=== PATIENT | male | born 1995 | race Caucasian/White ===

== ENCOUNTER 2022-01-09 09:54 | Outpatient (CLI) | payer OTHER ==
--- NOTE | 2022-01-09 11:06 | SLEEP CARE CONSULTATION ---
Information from patient questionnaire entered by Alissa Rocha MA. I have reviewed and concur with the information entered by Alissa Rocha MA. This document represents the service I personally performed and the decisions made by , Katie Cox ARNP. History of Present Illness Service Date and Time: 01/09/2022 0954 Reason for Visit: New patient Chief Complaint: reports: Snoring (light, rare), Excessive daytime sleepiness, Observed pauses in breathing, Fatigue Date of Onset: 2016 Usual bedtime: 9 PM Time it takes to fall asleep: 20 MINUTES - 2 HOURS Snores at night: No (very occasional) Observed to quit breathing while asleep: Yes Sleeps alone due to snoring: No Number of times waking at night: 1 Reasons for waking at night: reports: Gasping for air (random), Bathroom, Other (noise). denies: Snoring Toss, Turn, or Twitch while sleeping: Yes Recalls having dreams: Yes Usually gets out of bed at: 0600; 8-11 on weekends Feels refreshed in the morning: Yes (mostly) Morning headache: No Sleepy or fatigued during the day: Yes Ever fallen asleep while driving: No Takes day naps: No Dreams during day naps: Yes Prior sleep studies: No Additional HPI information: I had the pleasure of seeing MAICOL MATA today regarding the possibility of him having a sleep disorder. His current complaints are excessive daytime sleepiness, observed pauses in breathing and fatigue. Patient states that he is tired throughout the day. His girlfriend is "tired "of making sure that he continues to breathe. 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 He is here to find out if he has sleep apnea. He states he is able to get to sleep quickly some days and other nights it might take a couple of hours. He does not wake up often during the night but he has had incidences of waking up gasping for air. He states when he tries to nap, his heart rate will increase/race and then he feels anxious. He avoids naps for this reason. - Parasomnia Symptoms Ever been unable to move upon waking from sleep: Yes (last time happened in 2019; happened 9 times all together) Walks in sleep: No Talks in sleep: No Ever acted out dreams in sleep: No Ever felt weak in the knees when startled or emotional: Yes (has not fallen to the ground) Bothered by creepy, crawly, restless sensations in legs: Yes (rare) Problems with memory or concentration: Yes (both) Subjective Initial [place] Sleepiness Scale score: 9 (01/09/2022) Past Medical History Past Medical History: reports: Other (Being seen for ADHD, high blood pressure and narrow nasal passages (mouth breather)) Social History The patient's occupation is a AM. Patient is and lives in [place]. Have you smoked in the past 12 months: No Alcohol use: Yes Alcohol amount and frequency: 4-6 - 2 X WEEKLY Caffeine use: Yes Caffeine amount and frequency: 1 X DAILY Family History Family history of sleep disordered breathing: No Allergies and Home Medications Known drug allergies: No (NKA) Drug allergies reviewed: Yes (NKDA) Home medication list reviewed: Yes Allergy and home medication list: Allergies No Known Drug Allergies Allergy (Verified 02/04/19 09:53) VERIFIED BY ILIA KEENAN 01/09/2022 1000 Medications: Flonase, daily Review of Systems Weight gain over past 5 years: 40 Cardiovascular: reports: high blood pressure, chest pain Neurological: denies: headaches, head trauma Psychiatric: reports: Attention Deficit Hyperactivity, other (ADHD) Ear/Nose/Throat: reports: nasal congestion, sinus problems Endocrine: reports: too hot or cold, increased appetite Musculoskeletal: reports: back pain Physical Exam Vital signs obtained and entered by: ILIA KEENAN Blood Pressure: 116/78 (R18, P67, RIGHT) Heart Rate: 67 O2 Saturation: 98 (CLOTHE MASK) Height: 6 ft 1 in Weight: 240 lb (UNIFORM AND BOOTS PER PT INFO) Body Mass Index: 31.6 BMI Classification: Obese Neck circumference: 14.5 (INCHES) Mouth and throat: narrow oropharynx Soft palate: normal Hard palate: normal Uvula: normal Uvula visualization: 25% Mallampati Class III Tongue: normal in size Tonsils: 1+ Neck: normal w/o lymphadenopathy or thyromegaly Heart: regular rate and rhythm Lungs: clear bilaterally Impression and Plan 1. Suspected Obstructive Sleep Apnea-Hypopnea Syndrome, as suggested by a history of irregular snoring, observed cessation of breath while asleep, gasping or choking in sleep, frequent awakening during the night, cognitive impairment, and excessive daytime sleepiness. Narrow oropharynx and obesity are common predisposing factors for obstructive sleep apnea-hypopnea syndrome. I recommend proceeding to polysomnography to confirm the diagnosis and to assess severity. If the patient has significant sleep disordered breathing, a manual CPAP titration study will also be performed to find the optimal treatment pressure. I informed the patient of what the sleep studies involve and after some discussion, obtained agreement to proceed. The pathophysiology of obstructive sleep apnea-hypopnea syndrome was discussed with the patient and health risks of cardiovascular and cerebrovascular disease if not treated. Risks of drowsy driving discussed in detail and patient advised to avoid long distance driving and to extractor puller at the first sign of drowsiness. Patient agreed to plan. * Schedule polysomnography * Avoid long distance driving or driving when feeling sleepy. * Avoid alcohol, sedative and muscle relaxant around bedtime. * Attempt to lose weight. * Review instructions provided by trained office staff on how to prepare for the sleep study. * Return for follow-up after sleep study completed. Counseling Topics: Weight loss health impact Visit Type: In Office Time Spent with Patient (minutes): 32 Provider Statement: I spent 100% of the Face to Face Visit with the patient with greater than 50% spent counseling the patient and coordination of care.
[2022-01-09 11:07] VITALS: BP 116/78
== END 2022-01-09 09:55 | disposition home or self-care (01) ==
LOC: SC 09:54
PROVIDERS: ATTEND Nurse Practitioner Family
DX: R06.83 Snoring (principal); G47.8 Other sleep disorders; R06.81 Apnea, not elsewhere classified; E66.9 Obesity, unspecified; Z68.31 Body mass index [BMI] 31.0-31.9, adult
CPT/HCPCS: 99203; 99212

== ENCOUNTER 2022-02-26 09:23 | Outpatient (CLI) | payer OTHER | END 2022-02-26 09:24 | disposition home or self-care (01) | LOC: SC 09:23 | PROVIDERS: ATTEND Nurse Practitioner Family | DX: Z53.9 Procedure and treatment not carried out, unspecified reason (principal) ==

== ENCOUNTER 2022-02-27 11:26 | Outpatient (CLI) | payer OTHER | END 2022-02-27 11:27 | disposition home or self-care (01) | LOC: SC 11:26 | PROVIDERS: ATTEND Nurse Practitioner Family | DX: R06.83 Snoring (principal) | CPT/HCPCS: 95806 ==

== ENCOUNTER 2022-03-20 12:46 | Outpatient (CLI) | payer OTHER ==
--- NOTE | 2022-03-20 13:25 | SLEEP CARE CONSULTATION ---
Information from patient questionnaire entered by Janeth Santos. I have reviewed and concur with the information entered by Janeth Santos. This document represents the service I personally performed and the decisions made by , Katie Cox ARNP. History of Present Illness Service Date and Time: 03/20/2022 1246 Initial [place] Sleepiness Scale score: 9 (01/09/2022) Current [place] Sleepiness Scale score: 11 (03/20/2022) Additional HPI information: MAICOL MATA returns for follow up and results of the recently performed home sleep study. The patient was informed of the following findings: No significant sleep disordered breathing with an average AHI of 1.7 and sanjeev oxygen saturation of 83%. No supine sleep. I explained the pathophysiology behind obstructive sleep apnea. Patient does not have sleep apnea and was advised how weight gain could increase the risk of developing sleep apnea in the future. Patient was cautioned about risks of drowsy driving until sleepiness symptoms resolve. Sleep Study - Results Type of Sleep Study: Home sleep study (COMPLETED 02/27/2022) Prior sleep studies: No Polysomnography/Home Sleep Study results: Physician Impression: The quality of the study is fair due to partial loss of pulse oximetry signal. The length of the study is adequate (> 240 minutes). Please also see the tabulated and graphic data. 1. No significant sleep disordered breathing, with an AHI of 1.7/hr and sanjeev SaO2 of 83%. During the study, the patient had 2 apneas (2 obstructive, 0 central, 0 mixed) and 11 hypopneas. The longest episode lasted 67.5 seconds. The patient did not sleep supine during this study (supine AHI was 0.0 and non-supine, 1.66). 2. Hypoxemia (ICD-10 R09.02), minimal, with the lowest oxygen saturation of 83 % and 2.0 minutes with SaO2 under 90%. Baseline oxygen saturation was normal (Average oxygen saturation was 95%). Allergies and Home Medications Drug allergies reviewed: Yes (NKDA) Home medication list reviewed: Yes (chlorotiazide) Review of Systems Review of systems same as previous: No (hypertension) Physical Exam Vital signs obtained and entered by: JANETH Mckinley MA Blood Pressure: 154/100 (LEFT ARM) Cuff size: regular Heart Rate: 68 O2 Saturation: 97 Height: 6 ft 1 in Weight: 249 lb 3.2 oz Body Mass Index: 32.8 BMI Classification: Obese Impression and Plan 1. Suspected Obstructive Sleep Apnea-Hypopnea Syndrome, as suggested by a history of loud and irregular snoring, observed cessation of breath while asleep, gasping or choking in sleep, frequent awakening during the night, unrefreshed sleep, cognitive impairment, and excessive daytime sleepiness. Patient had a HST that was sub-optimal due to pulse oximetry loss and no supine sleep. I recommend proceeding to polysomnography to confirm the diagnosis and to assess severity. I obtained agreement to proceed. The pathophysiology of obstructive sleep apnea-hypopnea syndrome was discussed with the patient and health risks of cardiovascular and cerebrovascular disease if not treated. Risks of drowsy driving discussed in detail and patient advised to avoid long distance driving and to car repairer pullman at the first sign of drowsiness. Patient agreed to plan. * Schedule polysomnography * Avoid long distance driving or driving when feeling sleepy. * Avoid alcohol, sedative and muscle relaxant around bedtime. * Attempt to lose weight. * Review instructions provided by trained office staff on how to prepare for the sleep study. * Return for follow-up after sleep study completed. Counseling Topics: Weight loss health impact Visit Type: In Office Time Spent with Patient (minutes): 14 Provider Statement: I spent 100% of the Face to Face Visit with the patient with greater than 50% spent counseling the patient and coordination of care.
[2022-03-20 13:26] VITALS: BP 154/100
== END 2022-03-20 12:47 | disposition home or self-care (01) ==
LOC: SC 12:46
PROVIDERS: ATTEND Nurse Practitioner Family
DX: R06.83 Snoring (principal); G47.8 Other sleep disorders; R06.81 Apnea, not elsewhere classified; G47.10 Hypersomnia, unspecified; I10 Essential (primary) hypertension; E66.9 Obesity, unspecified; Z68.32 Body mass index [BMI] 32.0-32.9, adult
CPT/HCPCS: 99212

== ENCOUNTER 2022-04-11 20:55 | Outpatient (CLI) | payer OTHER | END 2022-04-11 20:56 | disposition home or self-care (01) | LOC: SC 20:55 | PROVIDERS: ATTEND Nurse Practitioner Family | DX: R06.83 Snoring (principal); G47.8 Other sleep disorders; R06.81 Apnea, not elsewhere classified; G47.10 Hypersomnia, unspecified; I10 Essential (primary) hypertension | CPT/HCPCS: 95810 ==

== ENCOUNTER 2022-04-29 14:52 | Outpatient (CLI) | payer OTHER ==
[2022-04-29 14:48] VITALS: BP 135/73
--- NOTE | 2022-04-29 14:48 | SLEEP CARE CONSULTATION ---
Information from patient questionnaire entered by Janeth Santos. I have reviewed and concur with the information entered by Janeth Santos. This document represents the service I personally performed and the decisions made by , Katie Cox ARNP. History of Present Illness Service Date and Time: 04/29/2022 1420 Initial [place] Sleepiness Scale score: 9 (01/09/2022) Current [place] Sleepiness Scale score: 16 (04/29/22) Additional HPI information: MAICOL MATA returns via video telehealth visit for follow up and results of the recently performed polysomnography. The patient was informed of the following findings: No significant sleep disordered breathing with an average AHI of 3.6 and sanjeev oxygen saturation of 85%. I explained the pathophysiology behind obstructive sleep apnea. Patient does not have sleep apnea and was advised how weight gain could increase the risk of developing sleep apnea in the future. I strongly encouraged the patient to lose weight. Patient has moderate snoring. Snoring can be reduced by weight loss. Weight loss is best achieved with diet consult. Patient instructed to contact PCP for referral. Snoring can also be treated with an oral appliance from a dentist. Advised to check insurance coverage. In addition, an ENT evaluation can be do to see if other treatment is indicated. Patient counseled not drink alcohol less than 4 hours before bedtime as it can increase snoring and apnea. Patient was cautioned about risks of drowsy driving until sleepiness symptoms resolve. Patient denies drowsy driving. Sleep Study - Results Type of Sleep Study: Polysomnography (COMPLETED 02/27/2022) Prior sleep studies: No Polysomnography/Home Sleep Study results: IMPRESSION: The quality of the study is good. The patient had normal sleep efficiency. The sleep architecture was normal as well. Respiratory monitoring showed no significant sleep disordered breathing (AHI = 3.6) or hypoxia (sanjeev oxygen saturation of 85% and only 0.9% to the total sleep time was spent with oxygen saturation below 90%). The few respiratory events occurred mainly during supine sleep (supine AHI = 4.5; non-supine = 1.20). Snore was moderate in intensity. There was no significant periodic leg movement of sleep. Cardiac rhythm was normal sinus rhythm without significant arrhythmia. No abnormal behavior (parasomnia) observed during the night. Allergies and Home Medications Drug allergies reviewed: Yes (NKDA) Home medication list reviewed: Yes (Losartan; atomoxetine) Review of Systems Review of systems same as previous: Yes (no changes) Physical Exam Vital signs obtained and entered by: VIA PHONE Blood Pressure: 135/73 (PER PT) Height: 6 ft 1 in (PER PT) Weight: 240 lb (PER PT) Body Mass Index: 31.6 BMI Classification: Obese Impression and Plan Snoring but no significant sleep disordered breathing. Patient advised that often weight loss will reduce snoring as well as apnea risk. An oral appliance can also be used for snoring. This would require a dental consultation. Patient cautioned not to use other online appliances as can cause bite issues. A list of accredited dentists in [facility] and one local dentist who makes oral appliances is available in office. Patient is advised to check if insurance will cover. An ENT consult can also be helpful to determine if any other treatment is an option. * Attempt to lose weight * Avoid alcohol consumption near bedtime * The patient is cautioned about driving until sleepiness is completely resolved. * Return as needed for follow up. Counseling Topics: Weight loss health impact Visit Type: Telehealth Video Video Type: Jose Patient Location: Home Location of Provider: Office Patient agrees and consents to this telehealth visit type: Yes Patient agrees to have their insurance billed: Yes Time Spent with Patient (minutes): 15 Provider Statement: I spent 100% of the Telehealth Video Call with the patient with greater than 50% spent counseling the patient and coordination of care.
== END 2022-04-29 14:53 | disposition home or self-care (01) ==
LOC: SC 14:52
PROVIDERS: ATTEND Nurse Practitioner Family
DX: R06.83 Snoring (principal); E66.9 Obesity, unspecified; Z68.31 Body mass index [BMI] 31.0-31.9, adult